=== PATIENT | male | born 1925 | race Caucasian/White ===

== ENCOUNTER 2016-06-06 10:35 | Emergency (ER) | payer BC ==
[~2016-06-06] VITALS: Ht 165.1 cm; Wt 87.0 kg
[~2016-06-06 10:35] MED LIST: ASCO500T16 PO; ASPEC81 PO; BNT20 PO; DOXA4TAB5 PO; FINA5TAB PO; FLNIN NAE; HYOS0.3725 PO; LORA-741 PO; LUTE15CA PO; METO50TA7 PO; MULTTAB58 PO; TRAZ50TA35 PO; TRIATAB3 PO; VNTHFA/IN INH
[2016-06-06 10:44] VITALS: TEMP 37; Ht 165.1 cm; Wt 87.0 kg
[2016-06-06 11:27] VITALS: O2SAT 97
[2016-06-06 11:47] LABS: BASO % 0.2 %; BASO ABS # 0.01 K/uL (0-0.2); COMPLETE YES; EOS % 1.3 %; HEMATOCRIT 38.5 % (42-52); IG% 0.2 %; LYMPH % 22.2 %; LYMPH ABS # 1.21 K/uL (1.2-3.4); MEAN CELL VOLUME 91.9 fL (80-100); MEAN CORPUSCULAR HGB CONC 34.8 g/dl (32-36); MEAN PLATELET VOLUME 11.2 fL (7.4-10.4); MONO % 7.7 %; NEUT % 68.4 %; PLATELET COUNT 140 K/uL (130-400); RED BLOOD COUNT 4.19 M/uL (4.7-6.1); WHITE BLOOD COUNT 5.45 K/uL (4.8-10.8)
[2016-06-06 11:50] LABS: URINE APPEARANCE CLEAR (CLEAR); URINE BILIRUBIN NEG (NEG); URINE COLOR YELLOW; URINE NITRITE NEG (NEG); URINE SPECIFIC GRAVITY 1.001 (1.000-1.030); UROBILINOGEN NEG (NEG)
[2016-06-06 11:59] LABS: MANUAL MICROSCOPIC REQUIRED? NO; REVIEW REQ? NO
--- NOTE | 2016-06-06 12:04 | EMERGENCY ROOM VISIT NOTE ---
History Report prepared by Leonardoibmiladys: Ashley Vail Under the Supervision of: Dr. Dave Dow M.D. First contact with patient: 11:22 Chief Complaint: PALPITATIONS Stated Complaint: HEART PALPATATIONS, WEAKNESS Nursing Triage Summary: Weak, "feels like my heart isnt pumping very well." Was here 2 weeks ago for same and had unremarkable workup. Denies CP and SOB but feels weak in arms. States he can hear his heart in his left ear. History of Present Illness The patient is an 89 year old male who presents to the Emergency Room with complaints of persistent palpitations. He is accompanied by his . He reports "I feel like my heart isn't pumping very well". The patient was seen here in the ED two weeks ago for the same symptoms and produced an unremarkable workup. He has not followed up with a retail seasonal specialist yet due to the holidays. He denies any chest pain or shortness of breath. He currently complains of a headache, but states he took Tylenol around 0800 and it has provided good pain relief. He states his headache feels like his usual headache pain. The patient denies any difficulty moving his head or neck. He denies any acute abdominal pain. He notes he takes Metoprolol 3 times a day and took his morning dose earlier this morning. Source of History: patient Onset: FLAT LOCKER Position: chest Timing: other (persistent) Associated Symptoms: + headache, No SOB, No abdominal pain, No chest pain Review of Systems See HPI for pertinent positives & negatives. A total of 10 systems reviewed and were otherwise negative. Past Medical & Surgical Medical Problems: (1) Anxiety disorder (2) BPH (benign prostatic hyperplasia) (3) GERD (gastroesophageal reflux disease) (4) HTN (hypertension) (5) Hypertension (6) Osteoarthritis Surgical Problems: (1) History of appendectomy (2) History of cholecystectomy (3) History of tonsillectomy and adenoidectomy Family History Patient reports no known family medical history. Social History Smoking Status: Never Smoker Alcohol Use: none Drug Use: none Marital Status: Housing Status: lives with family Occupation Status: retired Current/Historical Medications Scheduled Amoxicillin (Amoxil), 500 MG PO TID Ascorbic Acid (Ascorbic Acid), 500 MG PO QAM Aspirin Enteric Coated (Ecotrin Or Generic *), 81 MG PO QPM Doxazosin Mesylate (Doxazosin), 4 MG PO HS Finasteride (Proscar), 5 MG PO QPM Fluticasone Propionate (Flonase Nasal [place] *), 2 SPRAYS YANET DAILY Hyoscyamine Sulfate (Levbid), 1 TAB PO QAM Lutein-Zeaxanthin (Lutein), 1 CAP PO QAM Metoprolol Succ (Toprol Xl) (Toprol-Xl), 100 MG PO QAM Metoprolol Succ (Toprol Xl) (Toprol-Xl), 50 MG PO PM Multiple Vitamin (Multivitamin), 1 TAB PO QAM Trazodone Hcl (Trazodone), 50 MG PO HS Triamterene/Hctz (Triamterene/Hctz 37.5-25MG), 0.25-0.5 TAB PO QAM Scheduled PRN Albuterol Hfa (Ventolin Hfa), 2-4 PUFFS INH Q6H PRN for Shortness of Breath Dicyclomine Hcl (Bentyl *), 20 MG PO QID PRN for Pain Lorazepam (Ativan), 0.5 TAB PO DAILY PRN for Anxiety Allergies Coded Allergies: Aspirin (Verified Allergy, Unknown, GI UPSET, 04/21/16) CAN TAKE BABY ASA BUT NOT 325MG DOSE Egg White (Verified Allergy, Unknown, ., 04/21/16) Soybean Oil (Verified Allergy, Unknown, ., 04/21/16) Uncoded Allergies: ANIMAL FATS (Allergy, Unknown, ABDOMINAL PAIN, 03/29/16) Physical Exam Vital Signs Date Time Temp Pulse Resp B/P Pulse Ox O2 Delivery O2 Flow Rate FiO2 06/06/16 13:18 63 20 204/88 96 06/06/16 12:47 59 20 204/88 96 06/06/16 11:36 63 18 187/77 96 Room Air 06/06/16 11:33 61 18 181/87 97 Room Air 70 156/99 69 187/77 06/06/16 11:27 97 Room Air 06/06/16 11:09 97 Room Air 06/06/16 11:04 64 06/06/16 10:48 98 Room Air 06/06/16 10:44 37.0 67 18 168/87 97 Room Air Physical Exam GENERAL: Patient is a healthy-appearing well-nourished HEAD: Normocephalic atraumatic EYES: Ocular movements intact pupils equal and react to light OROPHARYNX mucous membranes are moist no exudates present no erythema or edema present NECK: Supple no nuchal rigidity CHEST: Good equal expansion LUNGS: Clear and equal to auscultation CARDIAC: Normal S1 and S2 ABDOMEN: Soft nontender no guarding BACK: No CVA tenderness EXTREMITIES: No pain upon palpation normal muscle strength in all groups no clubbing cyanosis or edema NEURO: Patient is following commands is answering questions appropriately. Alert and oriented x3 Cranial Nerves 2-12 grossly intact Medical Decision & Procedures ER Provider Diagnostic Interpretation: This X-Ray was reviewed and interpreted by myself and the radiologist. SINGLE VIEW CHEST IMPRESSION: Mild cardiac enlargement with no acute cardiopulmonary abnormality. Electronically signed by: Andres Pierce M.D. 06/06/2016 1:08 PM Laboratory Results 06/06/16 11:05 Red Blood Count 4.19, Mean Corpuscular Volume 91.9, Mean Corpuscular Hemoglobin 32.0, Mean Corpuscular Hemoglobin Concent 34.8, Mean Platelet Volume 11.2, Neutrophils (%) (Auto) 68.4, Lymphocytes (%) (Auto) 22.2, Monocytes (%) (Auto) 7.7, Eosinophils (%) (Auto) 1.3, Basophils (%) (Auto) 0.2, Neutrophils # (Auto) 3.73, Lymphocytes # (Auto) 1.21, Monocytes # (Auto) 0.42, Eosinophils # (Auto) 0.07, Basophils # (Auto) 0.01 06/06/16 11:05 Test 06/06/16 10:45 06/06/16 11:05 Urine Color YELLOW Urine Appearance CLEAR (CLEAR) Urine pH 5.0 (4.5-7.5) Urine Specific [place] 1.001 (1.000-1.030) Urine Protein NEG (NEG) Urine Glucose (UA) NEG (NEG) Urine Ketones NEG (NEG) Urine Occult Blood NEG (NEG) Urine Nitrite NEG (NEG) Urine Bilirubin NEG (NEG) Urine Urobilinogen NEG (NEG) Urine Leukocyte Esterase NEG (NEG) White Blood Count 5.45 K/uL (4.8-10.8) Red Blood Count 4.19 M/uL (4.7-6.1) Hemoglobin 13.4 g/dL (14.0-18.0) Hematocrit 38.5 % (42-52) Mean Corpuscular Volume 91.9 fL (80-100) Mean Corpuscular Hemoglobin 32.0 pg (25-34) Mean Corpuscular Hemoglobin Concent 34.8 g/dl (32-36) Platelet Count 140 K/uL (130-400) Mean Platelet Volume 11.2 fL (7.4-10.4) Neutrophils (%) (Auto) 68.4 % Lymphocytes (%) (Auto) 22.2 % Monocytes (%) (Auto) 7.7 % Eosinophils (%) (Auto) 1.3 % Basophils (%) (Auto) 0.2 % Neutrophils # (Auto) 3.73 K/uL (1.4-6.5) Lymphocytes # (Auto) 1.21 K/uL (1.2-3.4) Monocytes # (Auto) 0.42 K/uL (0.11-0.59) Eosinophils # (Auto) 0.07 K/uL (0-0.5) Basophils # (Auto) 0.01 K/uL (0-0.2) RDW Standard Deviation 41.9 fL (36.4-46.3) RDW Coefficient of Variation 12.4 % (11.5-14.5) Immature Granulocyte % (Auto) 0.2 % Immature Granulocyte # (Auto) 0.01 K/uL (0.00-0.02) Anion Gap 11.0 mmol/L (3-11) Est Creatinine Clear Calc Drug Dose 51.8 ml/min Estimated GFR () 77.5 Estimated GFR (Non- 66.9 BUN/Creatinine Ratio 9.5 (10-20) Calcium Level 8.2 mg/dl (8.5-10.1) Total Bilirubin 0.4 mg/dl (0.2-1) Direct Bilirubin mg/dl (0-0.2) Aspartate Amino Transf (AST/SGOT) 21 U/L (15-37) Alanine Aminotransferase (ALT/SGPT) 27 U/L (12-78) Alkaline Phosphatase 60 U/L (45-117) Total Creatine Kinase 143 U/L (39-308) Creatine Kinase MB 4.2 ng/ml (0.5-3.6) Creatine Kinase MB Ratio 2.9 (0-3.0) Troponin I < 0.015 ng/ml (0-0.045) Total Protein 7.0 gm/dl (6.4-8.2) Albumin 3.6 gm/dl (3.4-5.0) Thyroid Stimulating Hormone (TSH) 0.495 uIu/ml (0.300-4.500) Labs reviewed by ED physician. Medications Administered Medications (Trade) Dose Ordered Sig/Kelvin Route Start Time Stop Time Status Last Admin Dose Admin Amoxicillin (Amoxil Cap) 500 mg NOW STAT PO 06/06/16 13:07 06/06/16 13:08 DC 06/06/16 13:07 500 MG ECG Indication: palpitations Rate (beats per minute): 67 Rhythm: sinus rhythm Findings: no acute ischemic change, no ectopy ED Course 1157: Past medical records reviewed. The patient was evaluated in room C10. A complete history and physical examination was performed. 1250: I reevaluated the patient. He is feeling well. I discussed his results and discharge instructions and he and his verbalized complete understanding and agreement. 1307: Amoxicillin 500 mg PO. Medical Decision Prior records/ancillary studies reviewed. Triage Nursing notes reviewed. The patient's history was concerning for chest pain. Differential diagnosis: Etiologies such as cardiac ischemia, aortic dissection, pulmonary embolism, pneumonia, pneumothorax, musculoskeletal, infections, pericarditis, myocarditis , esophageal rupture, gastrointestinal, as well as others were entertained. This is an 89-year-old male who presents emergency department complaining of palpitations. I will note that the patient has been evaluated in the emergency department for his palpitations in the past however he is not follow-up with cardiology. The patient currently has no complaints however he seems upset with the dinging of the monitor and this seems to be bringing his blood pressure up. In addition the patient is also complaining of left ear fullness and is requesting he be placed on an antibiotic for this. He notes he was supposed follow-up with your nose and throat doctor however never did. For this reason I felt we could trial amoxicillin 500 mg. I feel the patient as well as to be discharged home with a normal CK-MB troponin as well as EKG. Patient was in agreement with the treatment plan Impression Primary Impression: Palpitations Additional Impression: Hypertension Scribe Attestation The scribe's documentation has been prepared under my direction and personally reviewed by me in its entirety. I confirm that the note above accurately reflects all work, treatment, procedures, and medical decision making performed by me. Departure Information Dispostion Home / Self-Care Prescriptions Amoxicillin (AMOXIL) 500 Mg Cap 500 MG PO TID for 10 Days, #30 CAP Prov: Dave Dow MD 06/06/16 Referrals David Gupta D.O. (PCP) Patient Instructions A Signature Page, ED Palpitations, Hypertension Control, Hypertension Dc, My [facility] Additional Instructions Follow up with DR Estevez's office You have been examined and treated today on an emergency basis only. This is not a substitute for, or an effort to provide, complete comprehensive medical care. It is impossible to recognize and treat all injuries or illnesses in a single emergency department visit. It is therefore important that you follow up closely with Dr Gupta. Call as soon as possible for an appointment. Thank you for your time and consideration. I look forward to speaking with you again soon. Please don't hesitate to call us if you have any questions.
[2016-06-06 12:11] LABS: ALKALINE PHOSPHATASE 60 U/L (45-117); ALT/SGPT 27 U/L (12-78); BLOOD UREA NITROGEN 9 mg/dl (7-18); BUN/CREATININE RATIO 9.5 (10-20); CALCIUM 8.2 mg/dl (8.5-10.1); CARBON DIOXIDE 24 mmol/L (21-32); CHLORIDE 109 mmol/L (98-107); GLUCOSE 149 mg/dl (70-99); THYROID STIMULATING HORMONE 0.495 uIu/ml (0.300-4.500)
[2016-06-06 12:32] LABS: AST/SGOT 21 U/L (15-37); CKMB/CK RATIO 2.9 (0-3.0); POTASSIUM 3.9 mmol/L (3.5-5.1); SODIUM 144 mmol/L (136-145)
[2016-06-06] MEDS ORDERED: SODIUM CHLORIDE 0.9% 1000ML 1,000 ML IV STA (12:46)
[2016-06-06] MEDS ORDERED: AMOX500C3 PO (13:07)
[2016-06-06] MEDS ORDERED: AMOXICILLIN 250 MG CAP PO STA (13:07)
--- NOTE | 2016-06-06 13:10 | DIAGNOSTIC IMAGING REPORT ---
SINGLE VIEW CHEST CLINICAL HISTORY: Palpitations and weakness. FINDINGS: An AP, portable, upright chest radiograph is compared to study dated 05/24/2016 and correlated with chest CT dated 09/24/2015. The examination is degraded by portable technique and apical lordotic positioning. The heart is mildly enlarged and there is atherosclerotic calcification of the thoracic aorta. The pulmonary vasculature is noncongested. Chronic interstitial thickening and mild elevation of the right hemidiaphragm are unchanged. No airspace consolidation or pleural effusion is identified. No pneumothorax is seen. The skeletal structures are osteopenic. The bony thorax is grossly intact. Cholestatic clips are identified in the right upper quadrant. IMPRESSION: Mild cardiac enlargement with no acute cardiopulmonary abnormality. Electronically signed by: Andres Pierce M.D. 06/06/2016 1:08 PM
[2016-06-06 13:18] VITALS: BP 204/88; PULSE 63; O2SAT 96
== END 2016-06-06 13:19 | disposition home or self-care (01) ==
LOC: C.EDB 10:36 → C.EDC 13:19
DX: R00.2 Palpitations (principal); I10 Essential (primary) hypertension; N40.0 Benign prostatic hyperplasia without lower urinary tract symptoms; F41.9 Anxiety disorder, unspecified; Z79.82 Long term (current) use of aspirin; Z79.899 Other long term (current) drug therapy

== ENCOUNTER → 2017-02-09 | Day surgery (SDC) | payer BC ==
[2017-01-19 14:45] VITALS: Ht 167.6 cm; Wt 87.3 kg
[~2017-02-09] VITALS: Ht 167.6 cm; Wt 87.3 kg
[~2017-02-09] MED LIST changes: +500ML BSS 0.3ML EPI 1:1000PF IRRIG ONE; +ACETAMINOPHEN 325 MG TAB PO PRN; +AMVISC PLUS 0.8ML SYRINGE INT OCU ONE; +ATROPINE SULFATE 0.1 MG/ML 5ML SYR IV PRN; +AcetaZOLAMIDE 250 MG TAB PO SCH; +BETAXOLOL HCL 0.25% OP SUSP PER DROP CHARGE OPL SCH; +BRIMONIDINE TART 0.2% OP SOLN PER DROP CHARGE ONE; +BSS FLUSH ONE; +DOXA-22 PO; -DOXA4TAB5 PO; +ENDOCOAT 0.85ML SYRINGE INT OCU ONE; +EpHEDrine SULFATE INJ 50 MG/ML AMP IV PRN; +EpINEphrine INJ 1MG/ML AMP 1 MG/ML AMP ONE; +FENTANYL CITRATE INJ 50 MCG/1 ML 2 ML VIAL ONE; +LABETALOL HCL IV 5 MG/ML 20ML IV ONE; +LACTATED RINGER'S 1000ML 500 ML IV SCH; +LIDOCAINE 4% OP SOLN DROP CHARGE ONE; +LIDOCAINE 4% OP SOLN DROP CHARGE OPL SCH; +LIDOCAINE HCL 1% MPF 2 ML VIAL ONE; +MIDAZOLAM HCL 1 MG/ML 2ML VIAL ONE; +MIX: 4ML BSS 1ML EPI 1:1000 PF INSTIL ONE; +MOXIFLOXACIN OPH SOLN PER DROP CHARGE ONE; +OCUCOAT 1 ML SOLN IO ONE; +POVIDONE-IODINE OP SOLN 30 ML BTL ONE; +PROPARACAINE 0.5% OP SOLN PER DROP CHARGE OPL SCH; +TOBRAMYCIN/DEXAMETHASONE OPH OINT PER APPLN CHARGE ONE
--- NOTE | 2017-02-09 09:51 | History & Physical Bridge - [place] ---
H&P Re-Evaluation Bridge Note: I have examined the patient, reviewed the History & Physical and in the interval since the performance of the History & Physical I have noted the following changes of clinical significance: No changes noted
[2017-02-09] MEDS: PHENYLEPHRINE HCL 2.5% OP SOLN PER DROP CHARGE OPL SCH ×2 (09:54→09:59)
[2017-02-09] MEDS: TROPICAMIDE 1% OP SOLN PER DROP CHARGE OPL SCH ×2 (09:55→10:00)
[2017-02-09] MEDS: CYCLOPENTOLATE HCL 1% OP SOLN PER DROP CHARGE OPL SCH ×2 (09:56→10:01)
[2017-02-09] MEDS: MOXIFLOXACIN OPH SOLN PER DROP CHARGE OPL SCH ×2 (09:57→10:09)
--- NOTE | 2017-02-09 10:36 | Discharge Instructions-SurgCtr ---
Discharge Instructions Date of Service Feb 09, 2017. Visit Reason for Visit: Cataract Left Eye Discharge Discharge Diagnosis / Problem: lens implant left eye Discharge Goals Goal(s): Improve function Activity Recommendations Activity Limitations: resume your previous activity Lifting Limitations: no more than 10 pounds Exercise/Sports Limitations: gradually increase as tolerated May Resume Sexual Activity: when tolerated Shower/Bathe: tomorrow Driving or Machine Use: resume 1 day after discharge Anesthesia . Post Anesthesia Instructions: If you have had General Anesthesia or IV Sedation: * Do not drive today. * Resume driving when surgeon permits. * Do not make important decisions or sign legal documents today. * Call surgeon for: 1. Temperature elevations greater than 101 degrees F. 2. Uncontrollable pain. 3. Excessive bleeding. 4. Persistent nausea and vomiting. 5. Medication intolerance (nausea, vomiting or rash). * For nausea and vomiting use only clear liquids such as: tea, soda, bouillon until nausea subsides, then gradually increase diet as tolerated. * If you have any concerns or questions, call your surgeon's office. If physician is unavailable and it is an emergency, call 911 or go to the nearest emergency room. . Instructions / Follow-Up Instructions / Follow-Up ACTIVITY RECOMMENDATIONS: * Light activities. * Mild irritation and blurred vision are common for the first few days. * You may walk outside, read, watch television. * Redness around the white part of the eye is common. MEDICATIONS: Resume previous medications unless instructed otherwise by your surgeon. * Take white Diamox (Acetazolamide) tablet at 1 pm today. Start all eye drops at 1 pm today: * Eye drops (today and tomorrow): Durezol - one drop in operative eye every 3 hours while awake Ofloxacin - one drop in operative eye every 3 hours while awake SPECIAL CARE INSTRUCTIONS: * Tape plastic shield over eye to sleep at night. Call your doctor at with any concerns or problems. FOLLOW UP VISIT: Follow-up with Dr Caballero at [place] office as scheduled. Diet Recommendations Home Diet: no limitations Procedures Procedures Performed: cataract extraction with lens implant Pending Studies Studies pending at discharge: no Medical Emergencies . Who to Call and When: Medical Emergencies: If at any time you feel your situation is an emergency, please call 911 immediately. . Non-Emergent Contact Non-Emergency issues call your: Whipped Topping Supervisor Call Non-Emergent contact if: your pain is not controlled [phone] . . "Provider Documentation" section prepared by Charly Caballero. .
--- NOTE | 2017-02-09 10:38 | [facility] Operative Report ---
Operative Report Date of Service Feb 09, 2017. Operative Report 1. PREOPERATIVE DIAGNOSIS: Senile nuclear cataract, left eye. 2. POSTOPERATIVE DIAGNOSIS: Senile nuclear cataract, left eye. 3. PROCEDURE: Phacoemulsification of left cataract with posterior chamber lens implant, type [employer], model MX60, power +19.5 diopters. ANESTHESIA: Local standby. SURGEON: Dr. Caballero. COMPLICATIONS: None. OPERATING TIME: 10 minutes. 4. OPERATION AND FINDINGS: DESCRIPTION OF PROCEDURE: The left pupil was dilated. The anesthetic was administered using a topical technique. The left eye was prepped and draped. A speculum was placed. A clear corneal incision was formed. The chamber was filled with Amvisc Plus and Endocoat. Epinephrine solution was used. A paracentesis was placed. A capsulorrhexis was performed. The nucleus was hydrodissected. A dense lens was removed with phacoemulsification. Time was 7.70 seconds. The aspiration unit was used to remove the cortex. The capsule was filled with Amvisc Plus. The lens implant was folded and placed into the capsule. The incision was hydrated. The Amvisc was aspirated. The wound was secure. The chamber was deep. The pupil was round. Brimonidine, TobraDex ointment and Vigamox solution were placed. The speculum was removed. The patient was returned to the Recovery Room in stable condition. I attest to the content of the Intraoperative Record and any orders documented therein. Any exceptions are noted below. The scribe's documentation has been prepared in my presence, under my direction and personally reviewed by me in its entirety. I confirm that the note above accurately reflects all work, treatment, procedures, and medical decision making performed by me. I personally scribed for Charly Caballero M.D. ([email or web address]) on 02/09/17 at 10:38. Electronically submitted by Jesi Garza ([email or web address]).
[2017-02-09 10:40] VITALS: TEMP 36.6
--- NOTE | 2017-02-09 11:00 | Anesthesia Progress Nt - [facility] ---
Anesthesia Post Op Note Date & Time Feb 09, 2017 at 11:00 Vital Signs Pain Intensity: 0 Vital Signs Past 12 Hours Date Time Temp Pulse Resp B/P (MAP) Pulse Ox O2 Delivery O2 Flow Rate FiO2 02/09/17 10:40 36.6 61 14 171/81 (111) 97 Room Air 02/09/17 09:25 36.8 57 16 166/84 (111) 96 Room Air Notes Mental Status: alert / awake / arousable, participated in evaluation Pt Amnestic to Procedure: Yes Nausea / Vomiting: adequately controlled Pain: adequately controlled Airway Patency, RR, SpO2: stable & adequate BP & HR: stable & adequate Hydration State: stable & adequate Anesthetic Complications: no major complications apparent
[2017-02-09 11:01] VITALS: BP 171/72; PULSE 55; O2SAT 97
== END | disposition home or self-care (01) ==
LOC: X.SURG 09:02
PROVIDERS: ATTEND Specialist
DX: H25.12 Age-related nuclear cataract, left eye (principal); I10 Essential (primary) hypertension; Z79.899 Other long term (current) drug therapy